=== PATIENT | female | born 1960 | race Caucasian/White ===

== ENCOUNTER 2017-07-08 09:43 | Emergency (ER) | payer OTHER ==
[2017-07-08] MEDS ORDERED: Ibuprofen TAB* 800 MG PO ONE (10:25)
--- NOTE | 2017-07-08 10:29 | ED ---
Complex/Multi-Sys Presentation - HPI Summary HPI Summary: [id number] patient presents with fall prior to arrival. She admits she accidentally tripped over the lip of the curb and fell forward, landing onto her left hand with an outstretched arm and her left knee. She denies striking her head, jarring her neck. No headache, visual change, neck pain or stiffness, chest pain, abdominal pain, nausea, vomiting, numbness, tingling, weakness. She does have left lateral hand swelling with pain - worse with trying to wheelman, move her wrist. Pain radiates from hand up into shoulder - no pain w/ elbow or shoulder palpation but entire extremity is sore to touch ( muscles/not bony anatomy). She also admits to left knee soreness with bruising. She is able to Extend her knee with minimal soreness and is able to bear weight without difficulty. Denies weakness here. She has not tried anything prior to arrival such as ice or ibuprofen however she is open to trying this now. She admits to history of osteopenia for which she takes a calcium supplement only. Denies tobacco use, alcohol use and no illicit drugs. She is currently staying in [place] with her in-laws to help with their medical care and ADL's. - History Of Current Complaint Chief Complaint: EDExtremityUpper Time Seen by Provider: 07/08/17 09:59 Hx Obtained From: Patient, Family/Home Care Provider - [id number] ([employer] TECHNICIAN) - Allergies/Home Medications Allergies/Adverse Reactions: Allergies Allergy/AdvReac Type Severity Reaction Status Date / Time No Known Allergies Allergy Verified 07/08/17 09:59 Home Medications: Home Medications Aspirin EC TAB* [Ecotrin EC Low Dose 81 MG*] 81 mg PO DAILY 07/08/17 [History Confirmed 07/08/17] PMH/Surg Hx/FS Hx/Imm Hx Previously Healthy: Yes Endocrine/Hematology History: Denies: Hx Anticoagulant Therapy, Hx Blood Disorders Musculoskeletal History: Reports: Hx Osteoporosis - osteopenia - takes calcium supplement Infectious Disease History: No Infectious Disease History: Denies: Traveled Outside the [place] in Last 30 Days - Family History Known Family History: Positive: None - Social History Occupation: Unemployed Lives: With Family - staying with in-laws to aid w/ their medical care Alcohol Use: None Hx Substance Use: No Substance Use Type: Reports: None Hx Tobacco Use: No Smoking Status (MU): Never Smoked Tobacco Review of Systems Constitutional: Negative Eyes: Negative Negative: Epistaxis, Dental Pain Cardiovascular: Negative Respiratory: Negative Gastrointestinal: Negative Positive: no symptoms reported Positive: Arthralgia, Myalgia, Decreased ROM, Edema Positive: Bruising Neurological: Negative Psychological: Normal All Other Systems Reviewed And Are Negative: Yes Physical Exam Triage Information Reviewed: Yes Vital Signs On Initial Exam: Initial Vitals Temp Pulse Resp BP Pulse Ox 96.8 F 87 18 150/74 97 07/08/17 09:51 07/08/17 09:51 07/08/17 09:51 07/08/17 09:51 07/08/17 09:51 Vital Signs Reviewed: Yes Appearance: Positive: Well-Appearing, Well-Nourished, Pain Distress - mild Skin: Positive: Warm, Skin Color Reflects Adequate Perfusion, Dry - mild ecchymosis w/ edema about the 5th MC of Lt hand - no skin breakdown; ecchymosis w/ abrasion over Lt patella - mild TTP - no kodak edema Head/Face: Positive: Normal Head/Face Inspection Eyes: Positive: Normal, EOMI, Conjunctiva Clear ENT: Positive: Hearing grossly normal, Pharynx normal Neck: Positive: Supple, Nontender Respiratory/Lung Sounds: Positive: Breath Sounds Present Cardiovascular: Positive: Pulses are Symmetrical in both Upper and Lower Extremities. Negative: Leg Edema Left, Leg Edema Right Abdomen Description: Positive: Nontender, Soft Bowel Sounds: Positive: Present Musculoskeletal: Positive: Strength/ROM Intact - FROM wrist - painful; FROM elbow and shoulder, Limited @ - pain admits to pain w/ Lt hand gripping - limited LT pinky flexion, Pain @ - Lt patella is TTP - no edema, no deformity, no laxity compared to Rt; (-) Wilder, Other - no popliteal tenderness or edema Neurological: Positive: Normal, Sensory/Motor Intact, Alert, Oriented to Person Place, Time, CN Intact II-III Psychiatric: Positive: Normal Diagnostics - Vital Signs Vital Signs Temp Pulse Resp BP Pulse Ox 07/08/17 09:51 96.8 F 87 18 150/74 97 - Laboratory Lab Statement: Any lab studies that have been ordered have been reviewed, and results considered in the medical decision making process. Complex Multi-Symp Course/Dx Course Of Treatment: Hand/wrist XR reveal OA which correlates w/ clincal exam - no acute fx, dislocation. Knee XR w/o acute findings. Suspect hand/wrist contusion vs. sprain. Will splint for comfort and f/u w/ PCP. Cock-up splint placed - N/V intact before and after. - Diagnoses Provider Diagnoses: Contusion of left hand, Sprain of left hand, Contusion of left knee, Accidental fall involving sidewalk curb Discharge - Sign-Out/Discharge Documenting (check all that apply): Discharge - Discharge Plan Condition: Stable Disposition: HOME Patient Education Materials: Contusion in Adults (ED), Hand Sprain (ED) Referrals: No Primary Care Phys,NOPCP [Primary Care Provider] - [facility]FERRAL [Outside] Additional Instructions: REST, ICE, ELEVATE AND KEEP SPLINT CLEAN, DRY AND IN PLACE most of the time - may remove to shower but limit hand use when splint if off. Follow-up with PCP in 1 week for re-examination to check for hidden fracture, sprain healing, etc. (you may do this for your hand and knee) You may take ibuprofen alternating with acetaminophen as needed for pain Call PCP today to schedule follow-up. If no PCP available for follow-up in 1 week, you may go to an urgent care. *If you develop numbness, tingling, weakness, swelling or skin discoloration, remove splint and elevate arm for 20 minutes. If symptoms persist, return to ED - Billing Disposition and Condition Condition: STABLE Disposition: HOME
--- NOTE | 2017-07-08 10:55 | RAD ---
HISTORY: Fall on outstretched hand COMPARISONS: None VIEWS: 4, Frontal, lateral, and oblique views of the left hand FINDINGS: BONE DENSITY: Normal. BONES: There is no displaced fracture. JOINTS: There is mild osteoarthritis of interphalangeal joints. ALIGNMENT: There is no dislocation. SOFT TISSUES: Unremarkable. OTHER FINDINGS: None. IMPRESSION: OSTEOARTHRITIS. NO ACUTE OSSEOUS INJURY. IF SYMPTOMS PERSIST, RECOMMEND REPEAT IMAGING.
--- NOTE | 2017-07-08 10:56 | RAD ---
INDICATION: Left knee injury. TECHNIQUE: 2 views of the left knee were obtained. FINDINGS: The bones are normal alignment. No joint effusion or fracture is seen. Joint spaces appear maintained. IMPRESSION: NO EVIDENCE FOR FRACTURE.
--- NOTE | 2017-07-08 10:56 | RAD ---
HISTORY: Fall on outstretched hand COMPARISONS: None VIEWS: 3, Frontal, lateral, and oblique views of the left wrist FINDINGS: BONE DENSITY: Normal. BONES: There is no displaced fracture. JOINTS: There is no arthropathy. ALIGNMENT: There is no dislocation. There is negative ulnar variance. SOFT TISSUES: Unremarkable. OTHER FINDINGS: None. IMPRESSION: NO ACUTE OSSEOUS INJURY. IF SYMPTOMS PERSIST, RECOMMEND REPEAT IMAGING.
[2017-07-08 11:21] VITALS: BP 125/80
== END 2017-07-08 11:21 | disposition home or self-care (01) ==
LOC: ED 09:43
DX: S60.222A Contusion of left hand, initial encounter (principal); S80.02XA Contusion of left knee, initial encounter; S63.92XA Sprain of unspecified part of left wrist and hand, initial encounter; W10.1XXA Fall (on)(from) sidewalk curb, initial encounter; Y93.01 Activity, walking, marching and hiking; Y92.480 Sidewalk as the place of occurrence of the external cause; M19.042 Primary osteoarthritis, left hand; M85.80 Other specified disorders of bone density and structure, unspecified site
CPT/HCPCS: 99282; A9270-GY